=== PATIENT | female | born 1940 | race Caucasian/White ===

== ENCOUNTER 2017-05-30 11:13 | Day surgery (SDC) | payer OTHER ==
[~2017-05-30] VITALS: Ht 160 cm; Wt 79.4 kg
[~2017-05-30 11:13] MED LIST: ABAC300; ACET500; AMIT50 PO; ASPI81CH PO; ASPI81EC PO; ATOR40TA; AZIT250 PO; Arthritis Pai42.5 GM; Augmentin 875-1 EACH PO; BUPR150ER PO; CALCNI; CEPH500 PO; CHOL10002 PO; CIPR250; CIPR500 PO; COQ1050 MG PO; DOC250 PO; DULO30 PO; Estrace Vagin42.5 GM; FERR325 PO; FLUC200; GINKO BILOBA PO; GLUCOPHAGE 500500 MG PO; GLUCOTROL; HYDACE5; HYDACE5 PO; HYDACE7.5 PO; HYDR1TAB94 PO; Hydrocodone-Ap1 EA23; IBUP600 PO; Keppra1000 MG PO; LANS15EC PO; LEVFLO500 PO; LEVSOD137; LEVSOD75; LOVA40; LOVA40 PO; MAGCHL64ER PO; MAGGLU250 PO; MELO7.5 PO; METCAR500; METF500; METF500 PO; METF850 PO; METO10 PO; METO50; METO50ER PO; MYRBETRIQ25 MG; NITR.4SL SL; NITR100 PO; ONDA4 PO; OXYACE5T PO; Omeprazole20 M1; Omeprazole20 M1 PO; PROM25 PO; RANI150; RANI150 PO; SLEEP AID25 MG; Synthroid112 MCG PO; TOPROL; TRAZ100 PO; TRIHYD5075; Vitamin B-12100 MCG PO; [UNRECOGNIZED DRUG - OTHER]; [UNRECOGNIZED DRUG - OTHER] PO
[2017-12-01] MEDS ORDERED: LACT10SY PO (14:29)
== END 2017-05-30 14:11 | disposition home or self-care (01) ==
LOC: ORSCSDS 11:13
PROVIDERS: Podiatrist
PROC: 0SGP04Z Fusion of Right Toe Phalangeal Joint with Internal Fixation Device, Open Approach (ICD-10-PCS; principal; 2017-05-30 12:30)
DX: M20.41 Other hammer toe(s) (acquired), right foot (principal); M79.671 Pain in right foot; I10 Essential (primary) hypertension; Z87.891 Personal history of nicotine dependence; E03.9 Hypothyroidism, unspecified; Z79.899 Other long term (current) drug therapy
CPT/HCPCS: 36415; 85025; J0690; J2250; J3010; J7120

== ENCOUNTER → 2017-06-25 | Outpatient (CLI) | payer OTHER ==
[~2017-06-25] MED LIST changes: +ACET500 PO; +BACL10 PO; +DONE5 PO; +LACT10SY PO; +QUETIAPINE FUMA50 MG PO
== END ==
LOC: LAB 09:31
DX: R30.9 Painful micturition, unspecified (principal); R35.0 Frequency of micturition
CPT/HCPCS: 87077; 87086; 87186

== ENCOUNTER 2017-12-03 10:11 | Inpatient (IN) | payer OTHER ==
[~2017-12-03] VITALS: Ht 160 cm; Wt 72.1 kg
[~2017-12-03 10:11] MED LIST changes: -ACET500 PO; -BACL10 PO; -DONE5 PO; -QUETIAPINE FUMA50 MG PO
[2017-12-03 22:13] LABS: BASOPHILS ABSOLUTE AUTO 0.02 K/mm3 (0.00-0.23); BASOPHILS PERCENT AUTO 0 % (0-2); EOSINOPHILS ABSOLUTE AUTO 0.04 K/mm3 (0.00-0.68); EOSINOPHILS PERCENT AUTO 0 % (0-6); Hematocrit 38.2 % (33.0-51.0); Hemoglobin 12.8 g/dL (11.5-16.0); IMMATURE GRAN ABSOLUTE AUTO 0.04 K/mm3 (0.00-0.10); IMMATURE GRAN PERCENT AUTO 0 % (0-1); LYMPHOCYTES ABSOLUTE AUTO 2.08 K/mm3 (0.84-5.20); LYMPHOCYTES PERCENT AUTO 19 % (21-46); MONOCYTES PERCENT AUTO 9 % (4-13); Mean Corpuscular HGB Conc 33.5 g/dL (31.5-36.5); Mean Platelet Volume 10.2 fL (9.1-12.4); NEUTROPHILS ABSOLUTE AUTO 8.09 K/mm3 (1.96-9.15); NEUTROPHILS PERCENT AUTO 72 % (41-73); Platelet Count 207 K/mm3 (150-400); RDW Coefficient Variation 13.2 % (11.7-14.2); RDW Standard Deviation 44.8 fL (35.1-46.3); Red Blood Cell Count 4.13 M/mm3 (3.80-5.20); White Blood Cell Count 11.27 K/mm3 (4.00-11.30)
[2017-12-03 22:14] LABS: Mean Corpuscular Volume 93 fL (80-100)
[2017-12-03 22:36] LABS: Albumin, Blood 3.8 g/dL (3.4-5.0); Albumin/Globulin Ratio 1.1 (0.8-1.8); Bilirubin, Total 0.9 mg/dL (0.1-1.0); Calcium, Blood 8.6 mg/dL (8.5-10.1); Creatinine, Blood 1.09 mg/dL (0.40-1.00); Globulin, Blood 3.5 g/dL (2.2-4.0); Potassium, Blood 4.1 mmol/L (3.5-5.5); Total Protein, Blood 7.3 g/dL (6.4-8.2)
[2017-12-04 03:47] LABS: Bilirubin, Urine Neg (Neg); Blood, Urine 2+ (Neg); Glucose Qualitative, Urine Neg (Neg); Ketones, Urine 1+ (Neg); Leukocyte Esterase, Urine Neg (Neg); Nitrite, Urine Pos (Neg); Protein, Urine Neg (Neg); Urobilinogen, Urine NORM (Normal); pH, Urine 6.5 (5.0-8.0)
[2017-12-04 03:56] LABS: Color, Urine Yellow (P-Yellow)
[2017-12-04 03:57] LABS: Appearance, Urine Clear (Clear); Bacteria Many /hpf; Red Blood Cells, Urine 0-2 /hpf (0-2); Squamous Epithelial Cells Few /hpf (Few); White Blood Cells, Urine 0-2 /hpf (0-5)
[2017-12-04 05:30] LABS: Hematocrit 36.7 % (33.0-51.0); Hemoglobin 11.9 g/dL (11.5-16.0); Mean Corpuscular HGB Conc 32.4 g/dL (31.5-36.5); Mean Corpuscular Volume 92 fL (80-100); Mean Platelet Volume 10.3 fL (9.1-12.4); Platelet Count 198 K/mm3 (150-400); RDW Coefficient Variation 13.4 % (11.7-14.2); RDW Standard Deviation 45.7 fL (35.1-46.3); Red Blood Cell Count 3.97 M/mm3 (3.80-5.20); White Blood Cell Count 11.15 K/mm3 (4.00-11.30)
[2017-12-04 05:56] LABS: Anion Gap 10 mmol/L (6-16); Blood Urea Nitrogen 11 mg/dL (8-24); Bun/Creatinine Ratio 11.7 (12.0-20.0); CO2, Blood 24 mmol/L (21-32); Calcium, Blood 7.9 mg/dL (8.5-10.1); Chloride, Blood 110 mmol/L (98-108); Creatinine, Blood 0.94 mg/dL (0.40-1.00); Glomerular Filtration Rate >60 (60-); Glucose, Blood 127 mg/dL (70-99); Potassium, Blood 3.2 mmol/L (3.5-5.5); Sodium, Blood 144 mmol/L (136-145)
[2017-12-04 06:06] LABS: Thyroid Stimulating Hormone 0.389 uIU/mL (0.360-4.800)
[2017-12-05 08:39] LABS: BASOPHILS ABSOLUTE AUTO 0.04 K/mm3 (0.00-0.23); BASOPHILS PERCENT AUTO 0 % (0-2); EOSINOPHILS ABSOLUTE AUTO 0.25 K/mm3 (0.00-0.68); EOSINOPHILS PERCENT AUTO 3 % (0-6); Hemoglobin 13.4 g/dL (11.5-16.0); IMMATURE GRAN ABSOLUTE AUTO 0.02 K/mm3 (0.00-0.10); IMMATURE GRAN PERCENT AUTO 0 % (0-1); LYMPHOCYTES ABSOLUTE AUTO 2.35 K/mm3 (0.84-5.20); LYMPHOCYTES PERCENT AUTO 24 % (21-46); MONOCYTES ABSOLUTE AUTO 0.89 K/mm3 (0.16-1.47); MONOCYTES PERCENT AUTO 9 % (4-13); Mean Corpuscular HGB Conc 32.7 g/dL (31.5-36.5); Mean Corpuscular Volume 92 fL (80-100); Mean Platelet Volume 10.4 fL (9.1-12.4); NEUTROPHILS ABSOLUTE AUTO 6.44 K/mm3 (1.96-9.15); NEUTROPHILS PERCENT AUTO 65 % (41-73); Platelet Count 233 K/mm3 (150-400); RDW Coefficient Variation 13.2 % (11.7-14.2); RDW Standard Deviation 45.1 fL (35.1-46.3); Red Blood Cell Count 4.46 M/mm3 (3.80-5.20); White Blood Cell Count 9.99 K/mm3 (4.00-11.30)
[2017-12-05 09:05] LABS: Anion Gap 11 mmol/L (6-16); Blood Urea Nitrogen 9 mg/dL (8-24); Bun/Creatinine Ratio 12.5 (12.0-20.0); CO2, Blood 21 mmol/L (21-32); Calcium, Blood 8.6 mg/dL (8.5-10.1); Chloride, Blood 108 mmol/L (98-108); Creatinine, Blood 0.72 mg/dL (0.40-1.00); Glomerular Filtration Rate >60 (60-); Glucose, Blood 174 mg/dL (70-99); Potassium, Blood 3.7 mmol/L (3.5-5.5); Sodium, Blood 140 mmol/L (136-145)
[2017-12-06 05:23] LABS: Bun/Creatinine Ratio 11.4 (12.0-20.0); Calcium, Blood 8.2 mg/dL (8.5-10.1); Creatinine, Blood 0.97 mg/dL (0.40-1.00); Potassium, Blood 3.5 mmol/L (3.5-5.5)
[2017-12-08 04:49] LABS: Hematocrit 38.2 % (33.0-51.0); Hemoglobin 12.5 g/dL (11.5-16.0); Mean Corpuscular HGB 30.9 pg (26.0-34.0); Mean Corpuscular HGB Conc 32.7 g/dL (31.5-36.5); Mean Platelet Volume 10.5 fL (9.1-12.4); Platelet Count 197 K/mm3 (150-400); RDW Coefficient Variation 13.2 % (11.7-14.2); RDW Standard Deviation 46.5 fL (35.1-46.3); Red Blood Cell Count 4.04 M/mm3 (3.80-5.20); White Blood Cell Count 7.36 K/mm3 (4.00-11.30)
[2017-12-08 04:50] LABS: Mean Corpuscular Volume 95 fL (80-100)
[2017-12-08 05:12] LABS: Anion Gap 8 mmol/L (6-16); Blood Urea Nitrogen 20 mg/dL (8-24); Bun/Creatinine Ratio 22.1 (12.0-20.0); CO2, Blood 27 mmol/L (21-32); Calcium, Blood 8.4 mg/dL (8.5-10.1); Chloride, Blood 103 mmol/L (98-108); Glomerular Filtration Rate >60 (60-); Glucose, Blood 140 mg/dL (70-99); Potassium, Blood 4.3 mmol/L (3.5-5.5); Sodium, Blood 138 mmol/L (136-145)
[2017-12-08] MEDS ORDERED: LOVA40 (10:14)
[2017-12-08] MEDS ORDERED: DONE5 PO (10:23)
[2017-12-08] MEDS ORDERED: BACL10 PO (10:23)
[2017-12-08] MEDS ORDERED: QUETIAPINE FUMA50 MG PO (10:23)
[2017-12-08] MEDS ORDERED: METCAR500 (10:23)
[2017-12-13] MEDS ORDERED: ACET500 PO (09:59)
== END 2017-12-13 12:41 | disposition hospice, home (50) | DRG 551 ==
LOC: ER 10:11 → MEDS 16:21 → EDPENDDIS 12-13 08:43 → ENPENDDIS 12-13 08:43 → MEDS 12-13 12:41
PROVIDERS: Family Medicine; Internal Medicine
DX: M54.9 Dorsalgia, unspecified (principal); G93.41 Metabolic encephalopathy; N39.0 Urinary tract infection, site not specified; F02.81 Dementia in other diseases classified elsewhere, unspecified severity, with behavioral disturbance; Z51.5 Encounter for palliative care; G30.9 Alzheimer's disease, unspecified; Z87.440 Personal history of urinary (tract) infections; G40.909 Epilepsy, unspecified, not intractable, without status epilepticus; Z96.659 Presence of unspecified artificial knee joint; Z87.891 Personal history of nicotine dependence; E03.9 Hypothyroidism, unspecified; K21.9 Gastro-esophageal reflux disease without esophagitis; M19.90 Unspecified osteoarthritis, unspecified site; I10 Essential (primary) hypertension; G89.29 Other chronic pain; D63.8 Anemia in other chronic diseases classified elsewhere; I48.0 Paroxysmal atrial fibrillation; E87.6 Hypokalemia; I67.9 Cerebrovascular disease, unspecified; M51.36 Other intervertebral disc degeneration, lumbar region; W19.XXXA Unspecified fall, initial encounter; Y92.239 Unspecified place in hospital as the place of occurrence of the external cause; E11.65 Type 2 diabetes mellitus with hyperglycemia
CPT/HCPCS: 36415; 70450; 71045; 73502; 74176; 76700; 80048; 80053; 81000; 81001; 82947; 83036; 84443; 85025; 85027; 87086; 87186; 96374; 96375; 96376; 97110; 97116; 97162; 97165; 97530; 99285-25; C9113; G0515; G8978; G8979; G8987; G8988; G8989; J0696; J1040; J1200; J1630; J1650; J1885; J2060; J2405; J3010; J7030; P9612